=== PATIENT | male | born 1995 | race Caucasian/White ===

== ENCOUNTER 2017-07-17 02:09 | Emergency (ER) | payer MEDICAID ==
[~2017-07-17] VITALS: Ht 170.2 cm; Wt 99.5 kg
[2017-07-17 02:28] VITALS: Ht 170.2 cm; Wt 99.5 kg
[2017-07-17] MEDS ORDERED: traMADol 50 MG TAB PO ONE (03:30)
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
--- NOTE | 2017-07-17 04:57 | RADRPT ---
PROCEDURE: XR hand. CLINICAL INDICATION: Trauma TECHNIQUE: AP, lateral and oblique views of the right hand was obtained. COMPARISON: There are no similar studies submitted for comparison. FINDINGS: There is normal bone mineralization. There is no acute fracture or dislocation. No osseous erosions are identified. The joint spaces are within normal limits. There is no soft tissue swelling. IMPRESSION: No acute fracture or dislocation. RPTAT: HIKT .Herson Squires MD, MD Date Time Electronically viewed and signed by .Herson Squires MD, MD on 07/17/2017 04:56 .T/
[2017-07-17] MEDS ORDERED: IBUP-1542 PO (05:01)
[2017-07-17 05:12] VITALS: PULSE 73; RESP 18; TEMP 98.9
== END 2017-07-17 05:13 | disposition home or self-care (01) ==
LOC: FTE 02:09
DX: S63.91XA Sprain of unspecified part of right wrist and hand, initial encounter (principal); X58.XXXA Exposure to other specified factors, initial encounter; Y92.9 Unspecified place or not applicable
CPT/HCPCS: 29125; 73130; Z7502; Z7610